=== PATIENT | female | born 1975 | race American Indian/Alaskan Native ===

== ENCOUNTER 2017-02-26 10:35 | Emergency (ER) | payer SELFPAY ==
[2017-02-26 13:50] LABS: Basophils % (Auto) 0.2 % (0.0-1.8); Eosinophils % (Auto) 0.1 % (0.0-4.3); Hemoglobin 13.3 gm/dl (10.1-14.3); Lymphocytes # (Auto) 1.3 K/mm3 (1.2-5.4); Lymphocytes % (Auto) 27.9 % (13.4-35.0); Mean Corpuscular HGB Conc 32 % (30-34); Mean Corpuscular Volume 79 fl (79-97); Monocytes # (Auto) 0.3 K/mm3 (0.0-0.8); Monocytes % (Auto) 7.3 % (0.0-7.3); Platelet Count 152 K/mm3 (140-440); Red Blood Count 5.35 M/mm3 (3.65-5.03); Red Cell Distribution Width 16.6 % (13.2-15.2)
[2017-02-26 13:54] LABS: Mean Corpuscular Hemoglobin 25 pg (28-32)
[2017-02-26 13:59] LABS: INR 0.95 (0.87-1.13)
[2017-02-26 14:00] LABS: Partial Thromboplastin Time 26.5 Sec. (24.2-36.6)
[2017-02-26 14:07] LABS: BUN/Creatinine Ratio 13; Blood Urea Nitrogen 9 mg/dL (7-17); Calcium 9.5 mg/dL (8.4-10.2); Hemolysis Index 10
--- NOTE | 2017-02-26 20:54 | Emergency Department Report ---
ED Dizziness HPI - General Chief Complaint: Dizziness Stated Complaint: TACHYCARDIC/DIZZINESS Time Seen by Provider: 02/26/17 20:36 Source: patient Mode of arrival: Ambulatory Limitations: No Limitations - History of Present Illness Initial Comments: Patient with history of high blood pressure over the past 1 or 2 days following her heart was beating, fast yesterday made her dizzy but not syncopal ,today it happened again it has since resolved she is here for evaluation of intermittent palpitations with dizzy spells. Denies any syncope denies any problems with walking. symptoms are resolved. heart rate goes to 100 with standing it was 91 at triage sitting, no other c/o, no cp no focal neuro c/o, no speech or visual c /o, no pradhan no stiff neck, no fever no calf pain or swelling MD Complaint: dizziness -: unknown Timing: intermittent, now resolved Description: "room spinning" History of Same: Yes History of Trauma: No Severity: mild Associated Symptoms: denies other symptoms. denies: ataxia, chest pain, confusion, diaphoresis, fever/chills, loss of appetite, malaise, seizure, shortness of breath, syncope, weakness - Related Data Allergies Allergy/AdvReac Type Severity Reaction Status Date / Time lisinopril Allergy Shortness Verified 02/26/17 10:49 of Breath ED Review of Systems ROS: Stated complaint: TACHYCARDIC/DIZZINESS Other details as noted in HPI Comment: All other systems reviewed and negative Constitutional: denies: diaphoresis, fever, malaise Respiratory: denies: no symptoms reported, cough, orthopnea, shortness of breath , SOB with exertion, SOB at rest, stridor Cardiovascular: palpitations. denies: chest pain, dyspnea on exertion, orthopnea, edema, syncope, paroxysmal nocturnal dyspnea Gastrointestinal: denies: diarrhea, constipation, hematemesis, melena, hematochezia Neurological: denies: headache, weakness, numbness, paresthesias, confusion, abnormal gait Psychiatric: denies: homicidal thoughts, suicidal thoughts Hematological/Lymphatic: denies: easy bruising ED Past Medical Hx - Past Medical History Hx Hypertension: Yes - Social History Smoking Status: Never Smoker Substance Use Type: None ED Physical Exam - General Limitations: No Limitations General appearance: alert, in no apparent distress - Head Head exam: Present: atraumatic, normocephalic - Eye Eye exam: Present: normal appearance, PERRL, EOMI - ENT ENT exam: Present: normal exam, normal orophraynx, mucous membranes moist - Neck Neck exam: Present: normal inspection. Absent: tenderness, meningismus - Respiratory Respiratory exam: Present: normal lung sounds bilaterally. Absent: respiratory distress, wheezes, rales, rhonchi, stridor, chest wall tenderness, accessory muscle use, decreased breath sounds, prolonged expiratory - Cardiovascular Cardiovascular Exam: Present: regular rate, normal rhythm, normal heart sounds. Absent: irregular rhythm, systolic murmur, diastolic murmur, rubs, gallop - GI/Abdominal GI/Abdominal exam: Present: soft. Absent: distended, tenderness, guarding, rebound, mass, bruit, pulsatile mass - Extremities Exam Extremities exam: Present: normal inspection, normal capillary refill. Absent: tenderness, pedal edema, joint swelling, calf tenderness - Back Exam Back exam: Present: normal inspection. Absent: tenderness, CVA tenderness (L), muscle spasm, paraspinal tenderness, vertebral tenderness - Neurological Exam Neurological exam: Present: alert, oriented X3, CN II-XII intact, normal gait, other (neg rhonberg). Absent: motor sensory deficit - Skin Skin exam: Present: warm, normal color. Absent: erythema, urticaria, petechiae ED Course Vital Signs 02/26/17 10:44 Temperature 98.6 F Pulse Rate 91 H Blood Pressure 203/111 O2 Sat by Pulse 100 Oximetry ED Medical Decision Making - Lab Data Result diagrams: 02/26/17 13:38 02/26/17 13:38 - EKG Data -: EKG Interpreted by Me EKG shows normal: sinus rhythm - EKG Data Interpretation: other (no acute ischemic changes, nl pr, no delta waves) - Radiology Data Radiology results: report reviewed - Medical Decision Making p t asymptomatic now, lab unremarkable, not orthostatic, neg cxr and ekg, hr nl and nsr no cerebellar findings, stable outpt /fu eval palpitaiotns Critical care attestation.: If time is entered above; I have spent that time in minutes in the direct care of this critically ill patient, excluding procedure time. ED Disposition Clinical Impression: Palpitations, Dizziness Disposition: DC-01 TO HOME OR SELFCARE Is pt being admited?: No Condition: Stable Instructions: Dizziness (ED), Palpitations (ED) Additional Instructions: see the doctor listed, return if new or alarming symptoms Referrals: PRIMARY MD STEPHANIE [Primary Care Provider] - 3-5 Days BUNNY CHAO MD [Staff Physician] - 3-5 Days Time of Disposition: 22:11
--- NOTE | 2017-02-26 21:39 | XRay Report ---
FINAL REPORT PROCEDURE: XR CHEST ROUTINE 2V TECHNIQUE: PA and lateral chest radiographs were obtained. CPT 20418 HISTORY: wheezes COMPARISON: No prior studies are available for comparison. FINDINGS: Heart: Normal. Mediastinum/Vessels: Normal. Lungs/Pleural space: Normal. Bony thorax: No acute osseous abnormality. Other: IMPRESSION: Negative examination.
[2017-02-27 01:06] VITALS: BP 159/98
== END 2017-02-26 22:47 | disposition home or self-care (01) ==
LOC: ED 10:35
DX: R42 Dizziness and giddiness (principal); I10 Essential (primary) hypertension; R00.2 Palpitations; Z88.8 Allergy status to other drugs, medicaments and biological substances
CPT/HCPCS: 36415; 71046; 80048; 84484; 84703; 85025; 85610; 85730; 93005; 93010